=== PATIENT | male | born 1960 | race Asian ===

== ENCOUNTER 2019-02-15 09:34 | Observation (INO) | payer BC ==
[2019-02-11 10:04] LABS: BASOPHILS % 0.4 % (0.0-1.0); EOSINOPHILS # (AUTO) 0.1 (0.0-0.4); EOSINOPHILS % 0.6 % (0.0-6.0); HEMATOCRIT 38.6 % (38.2-49.6); HEMOGLOBIN 13.6 g/dL (14.0-18.0); LYMPHOCYTES # (AUTO) 3.8 (1.0-3.2); LYMPHOCYTES % 36.3 % (18.0-39.1); MEAN CORPUSCULAR HEMOGLOBIN 33.9 pg (28-32); MEAN CORPUSCULAR HGB CONC 35.2 g/dL (31-35); MEAN CORPUSCULAR VOLUME 96.3 fL (81-99); MONOCYTES # (AUTO) 0.9 (0.2-0.8); MONOCYTES % 8.5 % (4.4-11.3); NEUTROPHILS # (AUTO) 5.6 (2.1-6.9); NEUTROPHILS % 53.8 % (38.7-80.0); PLATELET COUNT 182 x10e3/uL (140-360); RED BLOOD COUNT 4.01 x10e6/uL (4.3-5.7); RED CELL DISTRIBUTION WIDTH 12.2 % (11.7-14.4)
[2019-02-11 10:52] LABS: ALANINE AMINOTRANSFERASE 38 IU/L (0-55); ALBUMIN 4.1 g/dL (3.5-5.0); ALBUMIN/GLOBULIN RATIO 1.1 (0.8-2.0); ALKALINE PHOSPHATASE 81 IU/L (40-150); ANION GAP 13.4 mmol/L (8-16); BLOOD UREA NITROGEN 12 mg/dL (7-26); BUN/CREATININE RATIO 16 (6-25); CALCIUM 9.5 mg/dL (8.4-10.2); CARBON DIOXIDE 25 mmol/L (22-29); CHLORIDE 103 mmol/L (98-107); CREATININE, SERUM 0.77 mg/dL (0.72-1.25); EST GLOMERULAR FILTRATION RATE > 60 ML/MIN (60-); GLUCOSE 75 mg/dL (74-118); POTASSIUM 4.4 mmol/L (3.5-5.1); SODIUM 137 mmol/L (136-145)
[2019-02-15] VITALS (11 sets, daily range): BP systolic 130–180; BP diastolic 70–99
[~2019-02-15] VITALS: Ht 157.5 cm; Wt 49.9 kg
[~2019-02-15 09:34] MED LIST: CORLANOR PO; LISINOPRIL2.5 MG PO; METOPROLOL SUCC50 MG PO; SPIRONOLACTONE25 MG PO
[2019-02-15] MEDS ORDERED: LIDOCAINE HCL 2% LOCAL 20 ML VIAL ONE (10:20)
[2019-02-15] MEDS ORDERED: VERAPAMIL HCL 2.5 MG/ML 2 ML VIAL ONE (10:20)
[2019-02-15] MEDS ORDERED: FENTANYL CITRATE/PF 100MCG/2 ML INJ ONE (10:20)
[2019-02-15] MEDS ORDERED: MIDAZOLAM HCL 2 MG/2 ML VIAL ONE (10:20)
[2019-02-15] MEDS ORDERED: IOPAMIDOL 370 MG/ML 200 ML INFUS..BTL INJ ONE (10:20)
[2019-02-15] MEDS ORDERED: HEPARIN SOD/SOD CHLORIDE 2,000 ML ONE (10:20)
[2019-02-15] MEDS ORDERED: SODIUM CHLORIDE 0.9% 1000ML 1,000 ML ONE (10:20)
[2019-02-15] MEDS ORDERED: EPTIFIBATIDE 10 ML ONE (11:21)
[2019-02-15] MEDS ORDERED: TICAGRELOR 90 MG TABLET ONE (11:29)
[2019-02-15] MEDS ORDERED: ASPIRIN 325 MG TAB ONE (11:30)
--- NOTE | 2019-02-15 11:44 | NUR ---
1144 Received pt in Rm #10 Sister at bedside Identiferx2 [facility] Dr Dubon with fix LAD stent. Rt Tr band approach(13cc) ok to remove air at 1300 No gross issues pain pallor pressure or dysrhythmia. Dc planning given wiht sister to sign Given prescription to pt and faced to [facility] pharmacy per pt request Copies of POC given to pt . Rt Tr band w/o oozing. Intact neuro vascular function. Back to baseline orientation. Resp shallow and regular on room air. Denies necessity to defecate or urinate. Abdomen soft and non tender Iv site w/o s/s infiltration. Bilateral ppx4 PT/DT. Offered po intake and tolerated well. 1300 Tr band air initiated removal positive neuro vascular function remain to wrist.-2cc positive 11cc had 13cc to balloon. 1315 -2cc tolerating well ,no oozing positive 9cc,positive neuro vascular function 1330 -2cc tolerating well , no oozing neuro vascular function remain intact 1345 -2cc tolerating well, no oozing positive neuro vascular function no oozing 1400 Tr band off neuro vascular function remain intact 2x2 with Coban dressing no gross issue pain pallor pressure or dysrhythmia. Has copies of dc paper,prescription and know importance of f/o care ok for pt to dc at 1700pm when family arrives to pick pt up, chaz/rn
--- NOTE | 2019-02-15 15:00 | Operative Report ---
DATE OF PROCEDURE: 02/15/2019 SURGEON: John Dubon MD INDICATION: Coronary artery disease, abnormal stress test, unstable angina. PROCEDURES PERFORMED: 1. Left heart catheterization, selective coronary angiography, left ventriculography. 2. Stent placement to the mid and proximal left anterior descending artery. 3. Deployment of right wrist TR band. COMPLICATIONS: None. RECOMMENDATIONS: Dual antiplatelet therapy for at least 6 months. DESCRIPTION OF PROCEDURE: Access obtained in the right radial artery. A 5-Niuean sheath was placed. Right coronary artery is nondominant. Left main, circumflex, left posterior descending artery is widely patent with mild disease, 20% luminal stenosis. Mid left anterior descending artery, long tubular 70% to 80% stenosis with KELSY-3 flow. LV ejection fraction 35%. LV end-diastolic pressure of 10. No gradient across the aortic valve on pullback. A decision was made to intervene on the left anterior descending artery. The patient received intravenous heparin, Integrilin, oral aspirin, and Brilinta for anticoagulation. The left main was cannulated using an EBU 3.75 5-Niuean guiding catheter. Short Roadrunner wire was advanced across the lesion for support. Primary stent 2.5 x 38 mm Synergy deployed at 20 atmospheres. Excellent end result, less than 10% residual stenosis, KELSY-3 flow. No complications. Wire and guide sheath was removed. TR band applied. The patient discharged home same day. John Dubon MD [facility] /[id number]
--- NOTE | 2019-02-15 17:00 | NUR ---
1700 family arrives knows importance of f/o care . Family assisted dressing pt. Dc to car per w/c with [facility] escort. Iv removed . Coban dressing no s/s infiltration.No gross issues pain pallor pressure or dysrhythmia. No oozing at Tr band site Neuro vascular function remains intact. Dressing dry and intact with wrist splint. Dc home denies c/o CP or SOB d/rn
== END 2019-02-15 17:05 | disposition home or self-care (01) ==
LOC: CATH LAB 09:34 → CATH LAB V 14:21
PROVIDERS: ADMIT Internal Medicine Interventional Cardiology; ATTEND Internal Medicine Interventional Cardiology
DX: I50.22 Chronic systolic (congestive) heart failure (principal); I25.110 Atherosclerotic heart disease of native coronary artery with unstable angina pectoris; Z87.891 Personal history of nicotine dependence; Z95.810 Presence of automatic (implantable) cardiac defibrillator; Z01.812 Encounter for preprocedural laboratory examination
CPT/HCPCS: 36415; 80053; 85025; 92928; 93458; C1769; C1874; C1887; G0378; J1327; J2001; J2250; J7030; Q9967